=== PATIENT | male | born 1985 | race Caucasian/White ===

== ENCOUNTER 2017-08-27 14:32 | Emergency (ER) | payer OTHER ==
[2017-08-27 14:50] VITALS: BP 116/75
--- NOTE | 2017-08-27 15:11 | UC ---
Respiratory Complaint HPI - HPI Summary HPI Summary: cough x 5 days cough is dry , + nasal congestion , pnd, no fever, no chills no sore throat , no wheezing, no sob 2. left eye redness , no discharge, no change in vision - History of Current Complaint Chief Complaint: UCRespiratory Stated Complaint: COLD SYMPTOMS Time Seen by Provider: 08/27/17 14:49 Hx Obtained From: Patient Onset/Duration: Gradual Onset, Lasting Days - 5, Still Present Timing: Constant Severity Initially: Moderate Severity Currently: Moderate Character: Cough: Productive Aggravating Factors: Exertion, Deep Breaths Alleviating Factors: Upright Position Associated Signs And Symptoms: Positive: URI, Nasal Congestion - Allergies/Home Medications Allergies/Adverse Reactions: Allergies Allergy/AdvReac Type Severity Reaction Status Date / Time No Known Allergies Allergy Verified 08/27/17 14:45 PMH/Surg Hx/FS Hx/Imm Hx Previously Healthy: Yes - Surgical History Surgical History: None - Family History Known Family History: Positive: Hypertension - Social History Alcohol Use: Daily Substance Use Type: None Smoking Status (MU): Heavy Every Day Tobacco Smoker Type: Cigarettes Amount Used/How Often: 1/2 PPD Length of Time of Smoking/Using Tobacco: 18 Years Have You Smoked in the Last Year: Yes Household Exposure Type: Cigarettes - Immunization History Most Recent Influenza Vaccination: Not the 2016/2016 Season Most Recent Tetanus Shot: WITHIN 5 YEARS Review of Systems Constitutional: Negative Skin: Negative Eyes: Negative ENT: Nasal Discharge Respiratory: Cough Cardiovascular: Negative Is Patient Immunocompromised?: No All Other Systems Reviewed And Are Negative: Yes Physical Exam Triage Information Reviewed: Yes Appearance: Well-Appearing, No Pain Distress, Well-Nourished Vital Signs: Initial Vital Signs Temp 97.7 F 08/27/17 14:45 Pulse 81 08/27/17 14:45 Resp 18 08/27/17 14:45 BP 116/75 08/27/17 14:45 Pulse Ox 99 08/27/17 14:45 Vital Signs Reviewed: Yes Eyes: Positive: Conjunctiva Clear, Other: - stye left upper eyelid ENT: Positive: Normal ENT inspection, Hearing grossly normal, Pharynx normal, Nasal drainage Neck exam: Normal Neck: Positive: Supple, Nontender, No Lymphadenopathy Respiratory: Positive: Chest non-tender, Lungs clear, Normal breath sounds Cardiovascular: Positive: RRR, No Murmur, Pulses Normal Skin Exam: Normal UC Diagnostic Evaluation - Laboratory O2 Sat by Pulse Oximetry: 99 Respiratory Course/Dx - Differential Dx/Diagnosis Provider Diagnoses: bronchitis. stye left upper eyelid Discharge - Discharge Plan Condition: Stable Disposition: HOME Prescriptions: Benzonatate [TESSALON 200 MG CAP] 200 mg PO Q8H #21 cap Patient Education Materials: Stye (ED), Acute Bronchitis (ED) Referrals: Ijeoma Lucia MD [Primary Care Provider] - 7 Days
== END 2017-08-27 15:25 | disposition home or self-care (01) ==
LOC: UCCORT 14:32
DX: J40 Bronchitis, not specified as acute or chronic (principal); F17.210 Nicotine dependence, cigarettes, uncomplicated; H00.014 Hordeolum externum left upper eyelid
CPT/HCPCS: 99212; G0463

== ENCOUNTER 2017-11-25 16:42 | Emergency (ER) | payer OTHER ==
[2017-11-25 17:44] VITALS: BP 127/81
--- NOTE | 2017-11-25 18:08 | ED ---
Respiratory - HPI Summary HPI Summary: 32 yr old with cough, sinus congestion for 5 days. Seen a few days ago and put on antibiotics, and his sinuses feel better, but he still has a non productive cough that is annoying him. He denies fever, chills. There are other ill exposures in the house. - History of Current Complaint Chief Complaint: UCRespiratory Stated Complaint: COUGH Time Seen by Provider: 11/25/17 17:51 Pain Intensity: 0 - Allergy/Home Medications Allergies/Adverse Reactions: Allergies Allergy/AdvReac Type Severity Reaction Status Date / Time No Known Allergies Allergy Verified 11/25/17 17:43 Home Medications: Home Medications Amoxicillin PO (*) [Amoxicillin 500 MG CAP*] 500 mg PO Q12H 11/25/17 [History Confirmed 11/25/17] PMH/Surg Hx/FS Hx/Imm Hx - Surgical History Hx Anesthesia Reactions: No Infectious Disease History: No Infectious Disease History: Denies: Traveled Outside the [place] in Last 30 Days - Family History Known Family History: Positive: Hypertension - Social History Occupation: Employed Full-time Lives: With Family Alcohol Use: Daily Substance Use Type: Reports: None Smoking Status (MU): Heavy Every Day Tobacco Smoker Type: Cigarettes Amount Used/How Often: 1/2 PPD Length of Time of Smoking/Using Tobacco: 18 Years Have You Smoked in the Last Year: Yes Review of Systems Positive: Other - sinus pressure Positive: Cough All Other Systems Reviewed And Are Negative: Yes Physical Exam Triage Information Reviewed: Yes Vital Signs On Initial Exam: Initial Vitals Temp Pulse Resp BP Pulse Ox 99.1 F 64 16 127/81 99 11/25/17 17:40 11/25/17 17:40 11/25/17 17:40 11/25/17 17:40 11/25/17 17:40 Vital Signs Reviewed: Yes Appearance: Positive: Well-Appearing, No Pain Distress Skin: Positive: Warm, Skin Color Reflects Adequate Perfusion Head/Face: Positive: Normal Head/Face Inspection Eyes: Positive: EOMI ENT: Positive: Pharynx normal, TMs normal. Negative: Sinus tenderness Neck: Positive: Supple, Nontender Respiratory/Lung Sounds: Positive: Clear to Auscultation, Breath Sounds Present Cardiovascular: Positive: RRR. Negative: Murmur Abdomen Description: Positive: Nontender Musculoskeletal: Positive: Strength/ROM Intact Neurological: Positive: Sensory/Motor Intact, Alert, Oriented to Person Place, Time, CN Intact II-III Psychiatric: Positive: Normal AVPU Assessment: Alert - Denny Coma Scale Best Eye Response: 4 - Spontaneous Best Motor Response: 6 - Obeys Commands Best Verbal Response: 5 - Oriented Coma Scale Total: 15 Diagnostics - Vital Signs Vital Signs Temp Pulse Resp BP Pulse Ox 11/25/17 17:40 99.1 F 64 16 127/81 99 - Laboratory Lab Statement: Any lab studies that have been ordered have been reviewed, and results considered in the medical decision making process. Disposition - Course Course Of Treatment: 32 yr old with cough. Rx tessalon pearls. - Diagnoses Provider Diagnoses: Cough Discharge - Discharge Plan Condition: Good Disposition: HOME Prescriptions: Benzonatate [TESSALON 200 MG CAP] 200 mg PO BID #14 cap Patient Education Materials: Acute Bronchitis (ED) Referrals: No Primary Care Phys,NOPCP [Primary Care Provider] - [facility] [place] [facility]IAN REFERRAL [Outside]
== END 2017-11-25 18:14 | disposition home or self-care (01) ==
LOC: UCCORT 16:42
DX: R05 Cough (principal); F17.210 Nicotine dependence, cigarettes, uncomplicated
CPT/HCPCS: 99212; G0463

== ENCOUNTER 2019-11-26 10:14 | Emergency (ER) | payer OTHER ==
[2019-11-26 11:41] VITALS: BP 126/82
--- NOTE | 2019-11-26 12:25 | UC ---
HPI Wound/Suture Re-check - HPI Summary HPI Summary: Pt presents with request for staple removal. Pt had two maryann placed in left side of medial forehead at [facility] on 11/16/19. He is here requesting their removal. Pt denies any discharge, fever, chills or increased tenderness at site. - History Of Current Complaint Chief Complaint: UCGeneralIllness Stated Complaint: STAPLE REMOVAL Time Seen by Provider: 11/26/19 12:20 Hx Obtained From: Patient Onset/Duration: Sudden Onset, Still Present Severity: Mild Pain Intensity: 0 - Allergies/Home Medications Allergies/Adverse Reactions: Allergies Allergy/AdvReac Type Severity Reaction Status Date / Time No Known Allergies Allergy Verified 11/26/19 11:42 Home Medications: Home Medications NK [No Home Medications Reported] 11/26/19 [History Confirmed 11/26/19] PMH/Surg Hx/FS Hx/Imm Hx Previously Healthy: Yes - Surgical History Surgical History: None - Family History Known Family History: Positive: Hypertension - Social History Occupation: Employed Full-time Lives: With Family Alcohol Use: Daily Substance Use Type: None Smoking Status (MU): Heavy Every Day Tobacco Smoker Type: Cigarettes Amount Used/How Often: 1/2 PPD Length of Time of Smoking/Using Tobacco: 18 Years Have You Smoked in the Last Year: Yes Household Exposure Type: Cigarettes - Immunization History Most Recent Influenza Vaccination: Not the 2016/2016 Season Most Recent Tetanus Shot: WITHIN 5 YEARS Vaccination Up to Date: Yes Review of Systems All Other Systems Reviewed And Are Negative: Yes Constitutional: Positive: Negative Skin: Positive: Other - laceration to left side of forehead with staple intact. Eyes: Positive: Negative ENT: Positive: Negative Respiratory: Positive: Negative Cardiovascular: Positive: Negative Gastrointestinal: Positive: Negative Genitourinary: Positive: Negative Motor: Positive: Negative Neurovascular: Positive: Negative Musculoskeletal: Positive: Negative Neurological: Positive: Negative Psychological: Positive: Negative Is Patient Immunocompromised?: No Physical Exam Triage Information Reviewed: Yes Appearance: Well-Appearing Vital Signs: Initial Vital Signs Temp 98.2 F 11/26/19 11:39 Pulse 71 11/26/19 11:39 Resp 16 11/26/19 11:39 BP 126/82 11/26/19 11:39 Pulse Ox 99 11/26/19 11:39 Vital Signs Reviewed: Yes Eye Exam: Normal ENT: Positive: Hearing grossly normal Neck exam: Normal Respiratory: Positive: No respiratory distress Musculoskeletal Exam: Normal Neurological Exam: Normal Psychological Exam: Normal Skin Exam: Other - two maryann intact left side of forehead. small amount of crusted, yellow, clear derous discharge. Pt no c/o pain at wound site . No c/o pain with staple removal Course/Dx - Course Course Of Treatment: two maryann removed for forehead. Pt tolerated well. - Differential Dx - Laceration/Wound Differential Diagnoses: Suture Removal - Diagnosis Provider Diagnosis: Removal of maryann Discharge ED - Sign-Out/Discharge Documenting (check all that apply): Patient Departure All imaging exams completed and their final reports reviewed: No Studies - Discharge Plan Condition: Stable Disposition: HOME Patient Education Materials: Stitches Removal (ED) Referrals: Lottie Suárez PA [Primary Care Provider] - If Needed - Billing Disposition and Condition Condition: STABLE Disposition: Home - Attestation Statements Provider Attestation: I was available for consult. This patient was seen by the MARI. The patient was not presented to , seen by or examined by -Jaycee Jesus MD
== END 2019-11-26 12:30 | disposition home or self-care (01) ==
LOC: UCCORT 10:14
DX: Z48.02 Encounter for removal of sutures (principal); F17.210 Nicotine dependence, cigarettes, uncomplicated
CPT/HCPCS: 99211; G0463

== ENCOUNTER 2020-02-06 09:57 | Emergency (ER) | payer OTHER ==
--- NOTE | 2020-02-06 10:50 | UC ---
FLU HPI - HPI Summary HPI Summary: Pt presents to requesting COVID testing. Pt states in October vaped - states had cough and chest congestion following. States was feeling better until this week when felt a little congested in the chest again. no SOB. No productive. Pt with mild sinus congestion - had been taking Claritin-D with good effect - stopped taking because "ran out" Pt denies sore throat, ear pain , fever. No n/v/d Pt has not had know exposure to PUI or COVID. Pt continues to smoke cigarettes (1/2 ppd). Pt's medications as entered in EMR reviewed this visit - History of Current Complaint Chief Complaint: UCGeneralIllness Stated Complaint: COUGH,HEAVY CHEST Time Seen by Provider: 02/06/20 10:24 Hx Obtained From: Patient Onset/Duration: Gradual Onset, Lasting Weeks Severity Currently: Mild Severity Initially: Mild Pain Intensity: 2 Pain Scale Used: 0-10 Numeric - Allergy/Home Medications Allergies/Adverse Reactions: Allergies Allergy/AdvReac Type Severity Reaction Status Date / Time No Known Allergies Allergy Verified 02/06/20 10:14 Home Medications: Home Medications NK [No Home Medications Reported] 11/26/19 [History Confirmed 02/06/20] PMH/Surg Hx/FS Hx/Imm Hx Previously Healthy: Yes - Surgical History Surgical History: None - Family History Known Family History: Positive: Hypertension - Social History Occupation: Employed Full-time Lives: With Family - parents Alcohol Use: None Alcohol Amount: none in 3 months Substance Use Type: Marijuana, Other Substance Use Comment - Amount & Last Used: THC oil vape Smoking Status (MU): Heavy Every Day Tobacco Smoker - + vape October Type: Cigarettes Amount Used/How Often: 1/2 PPD Length of Time of Smoking/Using Tobacco: 18 Years Have You Smoked in the Last Year: Yes Household Exposure Type: Cigarettes - Immunization History Most Recent Influenza Vaccination: Not the 2016/2017 Season Most Recent Tetanus Shot: WITHIN 5 YEARS Vaccination Up to Date: Yes Review of Systems All Other Systems Reviewed And Are Negative: Yes Constitutional: Positive: Fatigue Skin: Positive: Negative Eyes: Positive: Negative ENT: Negative: Dental Pain Respiratory: Positive: Cough. Negative: Shortness Of Breath Cardiovascular: Positive: Negative Gastrointestinal: Positive: Negative Genitourinary: Positive: Negative Motor: Positive: Negative Neurovascular: Positive: Negative Musculoskeletal: Positive: Negative Neurological/Mental Status: Positive: Negative Psychological: Positive: Negative Physical Exam - Summary Physical Exam Summary: Pt evaluated by me in full PPE Vital Signs Reviewed: Yes A+Ox3, no distress Eyes: Conjunctiva Clear, NANDA. EOM intact and full ENT: Hearing grossly normal TM x 2 clear, mild nasal congestion, PND, turbinate inflammed, mmoist, uvula midline, no exudate, no erythema Neck: Positive: Supple Respiratory: Positive: No respiratory distress, No accessory muscle use + CTA throughout no w/r, speaking full easy sentences, no cough, no retractions Cardiovascular: RRR nl s1, s2 no m/r CBT <2 sec abd soft + BS nt/nd no guarding, no distension Musculoskeletal Exam: BOJORQUEZ x 4 without difficulty Strength Intact, ROM Intact Neurological: Positive: Alert, + sensation throughout Psychological: Positive: Normal Response To pipeline maintenance supervisor Skin: Positive: no rash, no ecchymosis Triage Information Reviewed: Yes Flu Course/Dx - Course Course Of Treatment: Patient presents to urgent care requesting over testing. Patient's a 34-year- old male who had respiratory symptoms in October after vaping. States symptoms improved. Patient states this past week started to feel congested again slight cough. No productive. No fevers or chills. Patient also with mild sinus congestion. Patient does have seasonal allergies currently taking Claritin which has helped him in the past. Patient requesting Jigar testing related to his symptoms. Patient does smoke cigarettes. Patient examined by me in full PP Clement. Nonfocal exam with stable vital signs. Recommend patient resume taking Claritin. We'll perform COVID testing. Discussed with patient strict isolation. Patient is understanding agreement comfortable with plan. Pt given work note - Differential Dx/Diagnosis Provider Diagnosis: COVID-19, Cough Discharge ED - Sign-Out/Discharge Documenting (check all that apply): Patient Departure All imaging exams completed and their final reports reviewed: No Studies - Discharge Plan Condition: Stable Disposition: HOME Forms: COVID-19 Tested & Isolation Referrals: Lottie Suárez PA [Primary Care Provider] - Additional Instructions: As discussed, you have been tested for COVID-19. Please follow the strict isolation guidelines as included in your paperwork. You should remain on isolation until you received a phone call with your test [facility]. This may take 2-3 days. If you have any questions, please contact the Health Department. Take allergy medication as prescribed Work to discontinue cigarette smoke It is recommended you follow-up with your primary care provider. If there is uncontrolled fevers, uncontrolled vomiting, shortness of breath, or you have any other concerns, return to emergency for further evaluation. - Billing Disposition and Condition Condition: STABLE Disposition: Home
[2020-02-06 10:56] VITALS: BP 125/79
== END 2020-02-06 11:13 | disposition home or self-care (01) ==
LOC: UCCORT 09:57
DX: R05 Cough (principal); R09.89 Other specified symptoms and signs involving the circulatory and respiratory systems; Z20.828 Contact with and (suspected) exposure to other viral communicable diseases; F17.210 Nicotine dependence, cigarettes, uncomplicated
CPT/HCPCS: 87635; 99211; G0463; G2023